=== PATIENT | female | born 1980 ===

== ENCOUNTER 2017-03-15 22:15 | Emergency (ER) | payer SELFPAY ==
[2017-03-15 22:55] LABS: Bilirubin Negative (Negative); Blood, Urine Trace (Negative); Clarity Slightly Cloudy (Clear); Glucose, Urine (Dipstick) Negative (Negative); Leukocyte Negative (Negative); Nitrite Negative (Negative); Protein, Urine (Dipstick) Trace mg/dL (Neg-Trace); Urobilinogen 0.2 mg/dL (0.2-1.0)
[2017-03-15 23:00] LABS: Bacteria/HPF 1+ HPF (None Seen); Squamous Epithelial 0-3 HPF (0-3); WBC/HPF 0-3 HPF (0-3)
[2017-03-15] MEDS ORDERED: Magnesium Citrate 300 ML BOT ONE (23:20)
--- NOTE | 2017-03-16 07:36 | RAD ---
ABDOMEN: Date: 03/15/17 Supine views of the abdomen were obtained. Although the left upper quadrant is not seen optimally in this patient (which I understand is where she hurts), there is a moderate amount of fecal material in the right colon. A calcification or two are indicated in the right lower quadrant, but probably n ot exactly in line with the ureter. These could even be vascular in nature. Clips are noted in the r ight upper quadrant from a prior cholecystectomy. There were no acute bony changes. IMPRESSION: Mild constipation. POS: HOME
== END 2017-03-15 23:35 | disposition home or self-care (01) ==
LOC: BURERS 22:15
DX: K59.00 Constipation, unspecified (principal); F17.210 Nicotine dependence, cigarettes, uncomplicated
CPT/HCPCS: 74000; 81003; 81015